=== PATIENT | female | born 1955 | race Caucasian/White ===

== ENCOUNTER → 2019-01-01 | Outpatient (CLI) | payer BC ==
--- NOTE | 2019-01-03 09:39 | MM ---
Reason for exam: screening (asymptomatic). Last mammogram was performed 2 years and 4 months ago. Physical Findings: A clinical breast exam by your physician is recommended on an annual basis and results should be correlated with mammographic findings. MG Screening Mammo w CAD Bilateral CC and MLO view(s) were taken. Prior study comparison: August 22, 2016, mammogram, performed at [facility]. March 31, 2011, mammogram, performed at [facility]. The breast tissue is heterogeneously dense. This may lower the sensitivity of mammography. No suspicious abnormality. No significant changes when compared with prior studies. ASSESSMENT: Negative, BI-RAD 1 RECOMMENDATION: Routine screening mammogram of both breasts in 1 year.
== END | disposition home or self-care (01) ==
LOC: RADMAMWWP 13:20
PROVIDERS: ATTEND Family Medicine
DX: Z12.31 Encounter for screening mammogram for malignant neoplasm of breast (principal)
CPT/HCPCS: 77067

== ENCOUNTER 2019-02-05 09:26 | Day surgery (SDC) | payer BC ==
[2019-02-03 15:00] VITALS: BMI 31.3
[~2019-02-05 09:26] MED LIST: LACTATED RINGERS 1,000 ML IV SCH; LIDOCAINE 1% 20 ML VIAL (10MG/ML) FOR IV START INTRADERMA PRN
[2019-02-05 09:56] VITALS: RESP 16; TEMP 97.9
[2019-02-05] MEDS ORDERED: ONDANSETRON 4 MG/2 ML VIAL IVP ONE (10:05)
[2019-02-05] MEDS ORDERED: PROPOFOL 10 MG/ML 20 ML VIAL IV ONE (10:07)
[2019-02-05] MEDS ORDERED: LIDOCAINE 1% INJ 10MG/ML (20 ML MDV) ONE (10:07)
--- NOTE | 2019-02-05 10:22 | P.PCN ---
Date of Procedure: 02/05/19 Procedure(s) Performed: BRIEF HISTORY: Patient is a 63-year-old pleasant white female scheduled for an elective colonoscopy as a part of screening for colorectal neoplasia PROCEDURE PERFORMED: Colonoscopy. PREOPERATIVE DIAGNOSIS: Screening for colon cancer. IV sedation per Anesthesia. PROCEDURE: After informed consent was obtained, the patient, was brought into the endoscopy unit. IV sedation was administered by Anesthesia under continuous monitoring. Digital rectal examination was normal. Initially the Olympus CF-160 flexible video colonoscope was then inserted in the rectum, gradually advanced into the cecum without any difficulty. Careful examination was performed as the scope was gradually being withdrawn. Ileocecal valve and the appendiceal orifice were visualized and appeared normal. Prep was excellent. Mucosa of the cecum, ascending colon, transverse colon, descending colon, sigmoid colon, and rectum appeared normal. Retroflexion was performed in the rectum and small internal hemorrhoids were seen. The patient tolerated the procedure well. IMPRESSION: Normal-appearing colon from rectum to cecum with no evidence of colorectal neoplasia. RECOMMENDATIONS: Findings of this examination were discussed with the patient as well as a family. She was advised to have a repeat screening colonoscopy in 10 years.
[2019-02-05 10:41] VITALS: BP 133/80; PULSE 57
== END 2019-02-05 11:07 | disposition home or self-care (01) ==
LOC: ORWHC2ENDO 09:26
PROVIDERS: ATTEND Internal Medicine Gastroenterology
DX: Z12.11 Encounter for screening for malignant neoplasm of colon (principal); K64.8 Other hemorrhoids; Z88.8 Allergy status to other drugs, medicaments and biological substances; I10 Essential (primary) hypertension; Z96.641 Presence of right artificial hip joint
CPT/HCPCS: J2405; J2001; J2704; G0121; 45378

== ENCOUNTER → 2021-07-05 | Outpatient (CLI) | payer BC, MEDICARE | END | disposition home or self-care (01) | LOC: LABWHC1 13:33 | PROVIDERS: ATTEND Otolaryngology | DX: J30.89 Other allergic rhinitis (principal) | CPT/HCPCS: 36415 ==

== ENCOUNTER → 2023-07-05 | Outpatient (CLI) | payer MEDICARE, BC ==
--- NOTE | 2023-07-07 16:55 | MM ---
Reason for Exam: Screening (asymptomatic). Last mammogram was performed 4 year(s) and 6 month(s) ago. Patient History: Menarche at age 12. First Full-Term at age 31. Late child-bearing (after 31). Hysterectomy at age 35. Risk Values: Bárbara 5 year model risk: 2.6%. NCI Lifetime model risk: 8.7%. Prior Study Comparison: 03/31/2011 Screening Mammogram, [facility]. 08/22/2016 Screening Mammogram, [facility]. 01/01/2019 Bilateral Screening Mammogram, [facility]. Tissue Density: There are scattered fibroglandular densities. Findings: Analyzed By CAD. There is no suspicious group of microcalcifications or new suspicious mass in either breast. Overall Assessment: Negative, BI-RAD 1 Management: Screening Mammogram of both breasts in 1 year. . Patient should continue monthly self-breast exams. A clinical breast exam by your physician is recommended on an annual basis. This exam should not preclude additional follow-up of suspicious palpable abnormalities. Note on Bárbara scores and lifetime risk: 1. A Bárbara score greater than 3% is considered moderate risk. If this is the case, consider specialist referral to assess eligibility for a risk reducing agent. 2. If overall lifetime risk for the development of breast cancer is 20% or higher, the patient may qualify for future screening with alternating mammogram and breast MRI. Electronically signed and approved by: Vaibhav Luna M.D. Radiologist
== END | disposition home or self-care (01) ==
LOC: RADMAMWWP 15:19
PROVIDERS: ATTEND Family Medicine
DX: Z12.31 Encounter for screening mammogram for malignant neoplasm of breast (principal)
CPT/HCPCS: 77063; 77067

== ENCOUNTER 2023-09-07 08:28 | Day surgery (SDC) | payer MEDICARE, BC ==
[2023-09-03 16:25] VITALS: BMI 32.1
[~2023-09-07 08:28] MED LIST changes: +ACETAMINOPHEN TAB 500 MG TAB PO PRN; +DEXAMETHASONE SOD PHOSPHATE 10 MG/ML 1 ML VIAL IV PRN; +DOCUSATE 100 MG CAP PO PRN; +FAMOTIDINE 20 MG/2 ML VIAL IVP PRN; +HYDROmorphone 0.5 MG/0.5 ML SYRINGE IVP PRN; +KETOROLAC 15 MG/ML 1 ML VIAL IVP PRN; -LACTATED RINGERS 1,000 ML IV SCH; -LIDOCAINE 1% 20 ML VIAL (10MG/ML) FOR IV START INTRADERMA PRN; +MIDAZOLAM 2 MG/2 ML VIAL IV PRN; +ONDANSETRON 4 MG/2 ML VIAL IVP PRN; +ROPIVACAINE/EPI/CLONIDINE/KET 50 ML SYRINGE MISCELLANE PRN; +TRANEXAMIC 1,000 MG/100ML-NACL 1,000 MG in SALINE 1 100ML.BAG IV PRN; +TRANEXAMIC 1,000 MG/100ML-NACL 1,000 MG in SALINE 1 100ML.BAG IVPB PRN; +oxyCODONE ER 10 MG TAB.ER.12H PO PRN
[2023-09-07] MEDS ORDERED: LACTATED RINGERS 1,000 ML IV ONE ×2 (09:05→11:24)
[2023-09-07] MEDS ORDERED: fentaNYL (PF) 50 MCG/ML 2 ML AMP IVP ONE (09:12)
[2023-09-07] MEDS ORDERED: MIDAZOLAM 2 MG/2 ML VIAL IVP ONE (09:12)
--- NOTE | 2023-09-07 09:31 | P.ANPRN ---
Procedure Note - Anesthesia - Nerve Block Performed Left Adductor Canal Single Time Out Performed: Yes Date of Procedure: 09/07/23 Procedure Start Time: :12 Procedure Stop Time: :17 Location of Patient: PreOp Indication: Acute Post-Operative Pain, Requested by Surgeon Sedation Type: Sedate with meaningful contact maintained Preparation: Sterile Prep Position: Supine Needle Types: Pajunk Needle Gauge: 21 Ultrasound used to visualize needle placement: Yes Ultrasound used to observe medication spread: Yes Injectate: 0.5% Ropivacaine (see comment for volume) (15 ml + 15 ml NS +4 mg Dexamethasone) Blood Aspirated: No Pain Paresthesia on Injection Noted: No Resistance on Injection: Normal Image Stored and Saved: Yes Events: Uneventful and Well Tolerated
--- NOTE | 2023-09-07 09:32 | P.ANPRN ---
Procedure Note - Anesthesia - Nerve Block Performed Left iPack Single Time Out Performed: Yes Date of Procedure: 09/07/23 Procedure Start Time: : Procedure Stop Time: Location of Patient: PreOp Indication: Acute Post-Operative Pain, Requested by Surgeon Sedation Type: Sedate with meaningful contact maintained Preparation: Sterile Prep Position: Right Lateral Needle Types: Pajunk Needle Gauge: 21 Ultrasound used to visualize needle placement: Yes Ultrasound used to observe medication spread: Yes Injectate: 0.5% Ropivacaine (see comment for volume) (15 ml + 15 ml NS + 4 mg Dexamethasone) Blood Aspirated: No Pain Paresthesia on Injection Noted: No Resistance on Injection: Normal Image Stored and Saved: Yes Events: Uneventful and Well Tolerated
[2023-09-07] MEDS ORDERED: NALOXONE 0.4 MG/ML 1 ML VIAL IV PRN (13:29)
[2023-09-07] MEDS ORDERED: hydrOXYzine pamoate 25 MG CAP PO PRN (13:29)
[2023-09-07] MEDS ORDERED: HYDROcodone/APAP 10-325MG 1 EACH TAB PO PRN (13:29)
[2023-09-07] MEDS ORDERED: MAGNESIUM HYDROXIDE 2,400 MG/30 ML CUP PO PRN (13:29)
[2023-09-07] MEDS ORDERED: ONDANSETRON 4 MG/2 ML VIAL IVP PRN (13:29)
[2023-09-07] MEDS ORDERED: bisacodyL 10 MG SUPP RECTAL PRN (13:29)
[2023-09-07] MEDS ORDERED: HYDROmorphone 0.5 MG/0.5 ML SYRINGE IVP PRN (13:29)
--- NOTE | 2023-09-07 13:41 | P.OP ---
Date of Procedure: 09/07/23 Preoperative Diagnosis: 1. Severe left valgus knee osteoarthritis 2. BMI 33.7 Postoperative Diagnosis: Same Procedure(s) Performed: 1. Left total knee arthroplasty 2. Computer assisted musculoskeletal navigation using CT/MRI images Implants: 1. [place] Triathlon PS Femur Size #4 2. [place] Triathlon [place] Tibial Base Size #4 with 12x50 stem 3. [place] Triathlon TS poly Size #11 4. [place] Triathlon all poly patella, Size #29 Anesthesia: SHARRONA, regional Surgeon: Michael Abdullahi Estimated Blood Loss (ml): 200 IV fluids (ml): 900 Pathology: none sent Condition: stable Disposition: PACU Indications for Procedure: I met with the patient preoperatively in the office setting and discussed treatment of their symptomatic knee arthritis. They failed a long course of nonsurgical treatment and elected to proceed with an elective total knee replacement. I discussed the potential risks and complications at length and gave them ample time to ask questions. Risks discussed included: risks from anesthesia, superficial site surgical infection, acute and/or chronic periprosthetic joint infection, delayed wound healing, drainage, wound necrosis, instability, stiffness, stiffness requiring manipulation and/or revision surgery, damage to local blood vessels or nerves, aseptic loosening of the implants, extensor mechanism issues including disruption, patellar maltracking, avascular necrosis etc., continued or worsened knee pain, generalized dissatisfaction with surgical outcome, need for revision surgery, an inability to regain preinjury level of function, DVT, PE, other medical complications, and possibly loss of life or limb. The patient voiced their understanding that while these are the most common complications other less common complications are possible. They provided both their verbal and written consent to go forward with surgery. Operative Findings: After registering the patient's knee with the AQUA PURE robotic system her initial valgus measured 3. Through both implant position manipulation and minimal lateral release of the IT band and extension her valgus was able to be corrected to 1.5 with trial implants. The patient had relatively poor bone quality and a large cyst in the tibia so I elected to use a short stem on the tibia. Given her valgus deformity I cut a box and used a posterior stabilized femoral implant and total stabilized polyethylene liner. Description of Procedure: The patient was identified in preoperative holding and the correct operative extremity was verified and marked with a marker. I reviewed the consent form with the patient at length. All of their questions were answered. The patient was given a block by anesthesia. They were then brought back to the operating room. They were transferred onto the operating room table where a general anesthetic, preoperative antibiotics, and tranexamic acid were administered by anesthesia. A tourniquet was applied to the proximal aspect of the operative extremity. The contralateral extremity was padded under the heel and secured to the operating room table with a nonsterile blue towel and tape. The ipsilateral arm was carefully draped across the patient's chest and secured with a pillow and foam. A post was applied over the lateral aspect of the ipsilateral thigh and a bolster was placed under the ipsilateral foot. I verified that the operative extremity was stable and the knee was flexed to 90. The operative extremity was then placed in a leg hilliard, nonsterile drapes were applied, and the extremity was prepped and draped sterilely in the standard sterile fashion. Prior to starting surgery timeout was performed identifying the correct patient, operative extremity, and procedure. The leg was then elevated, exsanguinated with an Esmarch bandage, and the tourniquet was inflated. An anterior midline incision was made sharply with a scalpel. Once I had dissected deep to the superficial fascial layer medial and lateral flaps were elevated. A medial parapatellar arthrotomy was created. Upon opening the knee joint there were diffuse arthritic changes in all 3 compartments. The anterior horn of the medial meniscus were sharply released and a medial release was performed around the posterior medial corner of the knee to facilitate retractor placement. The fat pad was excised with electrocautery. The patella was found to be severely arthritic and a provisional cut was made with a sagittal saw to facilitate mobilization of the extensor mechanism during the procedure. Remnants of the ACL and PCL were then excised from the notch. 4 mm pins were then placed within the incision in the medial distal femur and proximal tibia. Arrays were applied to the pins and I verified they were completely tightened. The knee was then registered with the AQUA PURE robot and manipulations in implant position were made to balance the knee and opitmize implant position. A limited release of the IT band was performed using electrocautery. Using the AQUA PURE robotic saw all cuts were made in accordance with our plan. After all bony fragments had been removed the cuts were verified with the planar probe. The tibia was then subluxed forward and sized. The knee was brought into flexion and a lamina pharmacy billing adjudicator was placed to allow removal of the meniscal remnants both medially and laterally as well as posterior osteophytes. Local anesthetic was then infiltrated around the joint capsule. Trial implants were then placed within the knee. Range of motion and collateral ligament tension was then evaluated. Adjustments in implant size and position were then made accordingly. Once the knee was felt to be appropriately balanced the Mino pins were removed. The patella was then recut, sized, and punched. A trial patellar button was then placed. With the trial components in place, the patella tracked midline. The femur was then drilled and the trial component removed. A cutting jig for the posterior stabilized implant was then pinned into place and the box cut was made with a saw. The trial tibial component was then appropriately rotated, pinned, and prepared for the keel. All trial components were then removed from the knee. The knee was thoroughly irrigated with pulsatile lavage. Cement was prepared via vacuum mixing in a bowl on the back table. I then hand pressurized cement into the femur and tibia and placed the implants beginning with the tibial base tray and poly liner, femoral component, and finally the patellar button. All extruded cement was removed including from the pin sites. Once the cement had hardened the knee was evaluated one final time with the final polyethylene liner in place. The knee had full extension and flexion and felt stable to varus and valgus stress throughout the arc of motion. The tourniquet was released and with the tourniquet down the patella tracked midline. All bleeders were controlled with electrocautery. The knee was then soaked for 3 minutes with a dilute Betadine soak. The knee was thoroughly irrigated using 3 L of sterile saline and pulsatile lavage. A deep drain was placed. The extensor mechanism was then reapproximated using pop off Vicryl sutures followed by a running barbed suture. The knee was then closed in layers with a 0 strata fix for the deep fascial layer, 2-0 strata fix for the superficial subcutaneous layer and Monocryl and Steri-Strips for the skin. A sterile dressing and drain sponge were applied. I verified that all instrument, sponge, and sharp counts were correct. The patient was then transferred off the operating room table, extubated, and brought to recovery having tolerated the procedure well. PLAN: The patient can weight-bear as tolerated on the operative extremity. DVT prophylaxis with aspirin 81 mg twice a day based on preoperative risk stratification. Follow-up in the office in 2 weeks for wound check and x-rays of the knee including an AP and lateral.
--- NOTE | 2023-09-07 14:19 | XR ---
EXAMINATION TYPE: XR knee limited LT DATE OF EXAM: 09/07/2023 COMPARISON: NONE TECHNIQUE: Two views submitted HISTORY: Post op FINDINGS: There is a prosthetic knee in near anatomic alignment. There is soft tissue edema and soft tissue e mphysema. Surgical drain noted. Soft tissue calcifications noted. IMPRESSION: 1. Postoperative change.
[2023-09-07] MEDS: LACTATED RINGERS 1,000 ML IV SCH (16:29)
[2023-09-07] MEDS: SODIUM CHLORIDE 0.9% 1,000 ML IV SCH (16:29)
[2023-09-07] MEDS ORDERED: SENNOSIDES-DOCUSATE SODIUM 1 EACH TAB PO SCH (21:00)
[2023-09-07] MEDS: ASPIRIN 81 MG PO SCH (21:02)
[2023-09-07] MEDS: HYDROcodone/APAP 5-325MG 1 EACH TAB PO PRN (23:25)
[2023-09-08] MEDS: SODIUM CHLORIDE 0.9% 1,000 ML IV SCH ×2 (01:24→01:44)
[2023-09-08] MEDS: LACTATED RINGERS 1,000 ML IV SCH (06:50)
--- NOTE | 2023-09-08 07:59 | P.PN ---
Subjective Progress Note Date: 09/08/23 Patient is doing well this morning. She has no complaints. Her pain is controlled. She has been up to the bathroom several times with assistance and a walker. Objective - Vital Signs Vital signs: Vital Signs Temp 98 F 09/08/23 01:10 Pulse 75 09/08/23 01:10 Resp 18 09/08/23 01:10 BP 111/65 09/08/23 01:10 Pulse Ox 92 L 09/08/23 01:10 FiO2 Intake & Output 09/07/23 09/08/23 09/08/23 18:59 06:59 18:59 Intake Total 1700 1250 Output Total 300 Balance 1400 1250 Weight 97.6 kg Intake: IV 1450 Intake, IV Titration 50 1250 Amount Sodium Chloride 0.9% 1, 1200 000 ml @ 100 mls/hr IV . Q10H VARGHESE Rx#:[id number] ceFAZolin 2 gm In Sodium 50 50 Chloride 0.9% 50 ml @ 100 mls/hr IVPB Q8H VARGHESE Rx#: [id number] Oral 200 Output: Estimated Blood Loss 300 Other: # Voids 1 - Exam The patient is sitting up comfortably in a chair. She is alert and able to answer questions. A focused examination of the left lower extremity was conducted. On inspection there is a clean surgical dressing in place with no drainage or saturation. Her Hemovac was removed. Motor and sensory function are intact throughout the left leg. Assessment and Plan Assessment: Postoperative day #1 status post left total knee replacement, doing well Plan: 1. Weight-bear as tolerated left lower extremity 2. DVT prophylaxis with aspirin 81 mg twice a day 4 weeks 3. Leave surgical dressing in place 4. Physical therapy 5. Dispo: We'll plan on discharging the patient home later this morning when she passes physical therapy. Due to the hospital pharmacy being closed her prescriptions were all sent electronically through our office EMR to [facility] in [place].
--- NOTE | 2023-09-08 08:00 | P.DS ---
Providers Date of admission: 09/07/2023 Attending physician: Michael Abdullahi Consults: 09/07/23 13:29 Consult Physician Routine Consulting Provider: Celeste Manley Consult Reason/Comments: post op medical management Do you want consulting provider notified?: Yes Primary care physician: Lali Chau [facility] Course: Patient is very pleasant is a healthy 68-year-old female who is admitted under my care yesterday. She underwent an uncomplicated total knee replacement and following surgery was transferred to the surgical floor. She received 2 doses of postoperative antibiotics. She was transitioned from IV to oral pain medication. Her Hemovac drain was pulled on postoperative day #1. She worked with physical therapy and did well. She was ultimately cleared for discharge home. Plan - Discharge Summary Discharge Rx Participant: Yes New Discharge Prescriptions: No Action Losartan Potassium [Cozaar] 100 mg PO DAILY Celecoxib [CeleBREX] 200 mg PO DAILY hydroCHLOROthiazide [Hydrodiuril] 50 mg PO DAILY Discharge Medication List Losartan Potassium [Cozaar] 100 mg PO DAILY 02/03/19 [History] Celecoxib [CeleBREX] 200 mg PO DAILY 09/03/23 [History] hydroCHLOROthiazide [Hydrodiuril] 50 mg PO DAILY 09/03/23 [History] Follow up Appointment(s)/Referral(s): Michael Abdullahi MD [Medical Doctor] - 2 Weeks Activity/Diet/Wound Care/Special Instructions: 1. Weight-bear as tolerated on your operative extremity unless instructed otherwise. Use a walker or other assistive device to ambulate. 2. Leave surgical dressing in place. If your dressing becomes saturated with blood, there is drainage, or the dressing becomes loose please contact the office. 3. It is okay to shower with your surgical dressing, but do not submerge in water (no hot tubs, bath's, swimming etc.) 4. Make sure to take her blood clot prevention medication as prescribed (aspirin, Eliquis, Xarelto, and Plavix are commonly prescribed medications for blood clot prevention) 5. While taking Beverly or Percocet for pain make sure you're taking a stool softener (Colace) and drink lots of water. 6. Keep all follow-up appointments as scheduled. You will usually be seen in 1-2 weeks following surgery. 7. Please contact the office with any questions or concerns [phone] Discharge Disposition: HOME SELF-CARE
[2023-09-08] MEDS: HYDROcodone/APAP 5-325MG 1 EACH TAB PO PRN ×2 (08:27→13:15)
[2023-09-08] MEDS: ASPIRIN 81 MG PO SCH (08:28)
[2023-09-08 08:36] VITALS: BP 117/70; PULSE 68; RESP 16; TEMP 97.9
[2023-09-08 09:07] LABS: Basophils % (A) 0 %; Eosinophils % (A) 0 %; HCT 30.7 % (34.0-46.0); HGB 9.7 gm/dL (11.4-16.0); Lymphocytes # (A) 1.8 k/uL (1.0-4.8); Lymphocytes % (A) 11 %; MCHC 31.5 g/dL (31.0-37.0); MCV 85.8 fL (80.0-100.0); Monocytes # (A) 0.6 k/uL (0-1.0); Monocytes % (A) 4 %; Neutrophils # (A) 13.9 k/uL (1.3-7.7); Neutrophils % (A) 85 %; Platelet Count 271 k/uL (150-450); RBC 3.58 m/uL (3.80-5.40); RDW 13.6 % (11.5-15.5); WBC 16.4 k/uL (3.8-10.6)
--- NOTE | 2023-09-08 11:08 | P.CONS ---
History of Present Illness - History of Present Illness This is a pleasant 68 years old female with past medical history of hypertension and osteoarthritis She was admitted for severe osteoarthritis of the left knee, she is status post left total knee arthroplasty. Medical consult was requested for routine medical management Patient is lying in bed comfortable, she denies any other symptom. Her pain at the surgery site controlled. She denies chest pain or dyspnea. No change in urine or bowel habits. No fever. Vitals are stable and patient is afebrile. Labs showing WBC is elevated 16.4 with hemoglobin 9.7. Review of Systems Review of systems CONSTITUTIONAL: No fever, no malaise, no fatigue. HEENT: No recent visual problems or hearing problems. Denied any sore throat. CARDIOVASCULAR: No orthopnea, PND, no palpitations, no syncope. PULMONARY: No shortness of breath, no cough, no hemoptysis. GASTROINTESTINAL: No diarrhea, no nausea, no vomiting, no abdominal pain. Normoactive bowel sounds. NEUROLOGICAL: No headaches, no weakness, no numbness. HEMATOLOGICAL: Denies any bleeding or petechiae. GENITOURINARY: Denies any burning micturition, frequency, or urgency. MUSCULOSKELETAL/RHEUMATOLOGICAL: Denies any joint pain, swelling, or any muscle pain. ENDOCRINE: Denies any polyuria or polydipsia. Past Medical History Past Medical History: Hypertension, Osteoarthritis (OA) Additional Past Medical History / Comment(s): heart murmur ("functional") History of Any Multi-Drug Resistant Organisms: None Reported Past Surgical History: Cholecystectomy, Hysterectomy, Joint Replacement Additional Past Surgical History / Comment(s): rt total hip replacement, throat surgery I & D PUS POCKET 2013, COLONOSCOPY, Past Anesthesia/Blood Transfusion Reactions: Previous Problems w/ Anesthesia, Motion Sickness, Postoperative Nausea & Vomiting (PONV) Additional Past Anesthesia/Blood Transfusion Reaction / Comm: "go under very deeply" Past Psychological History: No Psychological Hx Reported Smoking Status: Never smoker Past Alcohol Use History: Occasional Past Drug Use History: None Reported - Past Family History Mother Family Medical History: No Reported History Medications and Allergies Home Medications Medication Instructions Recorded Confirmed Type Losartan Potassium [Cozaar] 100 mg PO DAILY 02/03/19 09/03/23 History Celecoxib [CeleBREX] 200 mg PO DAILY 09/03/23 09/03/23 History hydroCHLOROthiazide [Hydrodiuril] 50 mg PO DAILY 09/03/23 09/03/23 History Allergies Allergy/AdvReac Type Severity Reaction Status Date / Time FRANCINE Inhibitors Allergy Cough Verified 09/03/23 15:59 Physical Exam Vitals: Vital Signs Temp Pulse Pulse Resp BP Pulse Ox 09/08/23 08:23 96 09/08/23 07:32 97.9 F 68 16 117/70 94 L 09/08/23 01:10 98 F 75 18 111/65 92 L 09/07/23 20:00 97.7 F 79 16 127/78 96 09/07/23 17:26 97.4 F L 79 10 L 131/75 96 09/07/23 17:01 72 134/76 96 09/07/23 16:46 81 134/78 99 09/07/23 16:31 75 126/73 96 09/07/23 16:16 75 130/75 93 L 09/07/23 16:01 68 130/76 96 09/07/23 15:46 84 131/75 98 09/07/23 15:31 67 136/74 98 09/07/23 15:16 63 133/73 95 09/07/23 15:02 73 131/63 97 09/07/23 14:58 97.5 F L 69 20 143/71 98 09/07/23 14:34 74 16 131/56 96 09/07/23 14:19 67 16 114/53 95 09/07/23 14:03 66 16 123/55 95 09/07/23 13:48 64 16 113/46 100 09/07/23 13:33 68 16 129/52 98 09/07/23 13:18 97.3 F L 84 12 136/59 94 L Intake and Output 09/07/23 09/08/23 09/08/23 22:59 06:59 14:59 Intake Total 250 1250 Balance 250 1250 Intake: Intake, IV Titration 50 1250 Amount Sodium Chloride 0.9% 1, 1200 000 ml @ 100 mls/hr IV . Q10H VARGHESE Rx#:[id number] ceFAZolin 2 gm In Sodium 50 50 Chloride 0.9% 50 ml @ 100 mls/hr IVPB Q8H VARGHESE Rx#: [id number] Oral 200 Other: # Voids 1 1 Weight 97.6 kg GENERAL: The patient is alert and oriented x3, not in any acute distress. Well developed, well nourished. HEENT: Pupils are round and equally reacting to light. EOMI. No scleral icterus. No conjunctival pallor. Normocephalic, atraumatic. No pharyngeal erythema. No thyromegaly. CARDIOVASCULAR: S1 and S2 present. No murmurs, rubs, or gallops. PULMONARY: Chest is clear to auscultation, no wheezing , no crackles. ABDOMEN: Soft, nontender, nondistended, normoactive bowel sounds. No palpable organomegaly. MUSCULOSKELETAL: No joint swelling or deformity. EXTREMITIES: No cyanosis, clubbing, or pedal edema. Left knee surgical wound closed, dressing in a Place, sulfa exam is deferred to surgery team NEUROLOGICAL: Gross neurological examination did not reveal any focal deficits. SKIN: No rashes. no petechiae. Results CBC & Chem 7: 09/08/23 06:52 Labs: Abnormal Lab Results - Last 24 Hours (Table) 09/08/23 Range/Units 06:52 WBC 16.4 H (3.8-10.6) k/uL RBC 3.58 L (3.80-5.40) m/uL Hgb 9.7 L (11.4-16.0) gm/dL Hct 30.7 L (34.0-46.0) % Neutrophils # 13.9 H (1.3-7.7) k/uL Assessment and Plan Assessment: Severe osteoarthritis status post left total knee arthroplasty. Today postop day #1 Leukocytosis most likely reactive Postoperative anemia, expected Hypertension Obesity with BMI of 33.7 Plan: Continue monitoring WBC Monitor hemoglobin Upon discharge recommend patient to resume her losartan 100 mg daily but hold hydrochlorothiazide 50 mg daily until she follows up with her blood pressure as an outpatient with her PCP within 3-4 days, patient was instructed with this plan and she is agreeable Pain management and DVT prophylaxis as per surgery primary team Orthopedic surgery primary team on the case Patient is medically stable. We recommend patient follow up with PCP Dr. Escalera in one week after discharge, patient was informed with the same Thank you for your consult
== END 2023-09-08 17:00 | disposition home health service (06) ==
LOC: OR 08:28 → 4SSUR 13:07 → OR 09-08 17:00
PROVIDERS: ATTEND Orthopaedic Surgery
DX: M17.12 Unilateral primary osteoarthritis, left knee (principal); G89.18 Other acute postprocedural pain; I10 Essential (primary) hypertension; H91.90 Unspecified hearing loss, unspecified ear; Z79.1 Long term (current) use of non-steroidal anti-inflammatories (NSAID); Z79.899 Other long term (current) drug therapy; Z96.641 Presence of right artificial hip joint
CPT/HCPCS: 0055T; 27447; 64448; 64999; S2900; 85025; 94760

== ENCOUNTER → 2023-11-06 | Outpatient (CLI) | payer MEDICARE ==
[2023-11-06 12:47] LABS: INR 0.8 (<1.2); Partial Thromboplastin Time 25.2 sec (22.0-30.0); Prothrombin Time 9.6 sec (10.0-12.5)
[2023-11-06 15:32] LABS: HCT 38.6 % (37.2-46.3); MCH 26.4 pg (27.0-32.0); MCHC 31.1 g/dL (32.0-37.0); Mean Platelet Volume 10.3 FL (9.5-12.2); NRBC Per 100 WBC 0 X 10*3/uL (0.00-0.01); Platelet Count 381 X 10*3/uL (140-440); RBC 4.54 X 10*6/uL (4.10-5.20); RDW 14.5 % (11.5-14.5); WBC 7.11 X 10*3/uL (4.50-10.00)
[2023-11-06 15:38] LABS: ALT 10 U/L (8-44); AST 14 U/L (13-35); Albumin 4.3 g/dL (3.8-4.9); Albumin/Globulin Ratio 1.79 Ratio (1.60-3.17); Alkaline Phosphatase 91 U/L (41-126); BUN/Creat Ratio 23.75 Ratio (12.00-20.00); Calcium 10.1 mg/dL (8.7-10.3); Carbon Dioxide 29.2 mmol/L (21.6-31.8); Chloride 102 mmol/L (96-109); Globulin 2.4 g/dL (1.6-3.3); Glucose 94 mg/dL (70-110); Sodium 143 mmol/L (135-145); Total Bilirubin 0.2 mg/dL (0.3-1.2); Total Protein 6.7 g/dL (6.2-8.2)
== END | disposition home or self-care (01) ==
LOC: LABPAT 11:25
PROVIDERS: ATTEND Orthopaedic Surgery
DX: Z01.812 Encounter for preprocedural laboratory examination (principal); M17.11 Unilateral primary osteoarthritis, right knee; Z22.322 Carrier or suspected carrier of Methicillin resistant Staphylococcus aureus
CPT/HCPCS: 36415; 80053; 83036; 85027; 85610; 85730; 87070

== ENCOUNTER → 2023-11-06 | Outpatient (CLI) | payer MEDICARE ==
--- NOTE | 2023-11-14 08:28 | CT ---
EXAMINATION TYPE: CT right knee - [facility] Protocol CT DLP: 1025 mGycm, Automated exposure control for dose reduction was used. DATE OF EXAM: 11/06/2023 1:06 PM INDICATION: Patient age:Female; 68 years old; Reason for study: [facility] Protocol for hip/knee replacement, M25.562 PAIN IN RIGHT KNEE; [facility]. COMPARISON: CT left knee [facility] protocol 08/13/2023 TECHNIQUE: Thin section axial CT imaging of the right hip, right knee, right ankle was performed per Mino protoc ol, without the administration of IV contrast. FINDINGS: Osseous mineralization appears diminished. No evidence of osseous destructive process. Tiny sclerotic focus in the left pubic bone near the symphysis, 8 mm sclerotic focus in the posterior left acetabul um, 2 mm focus in the left femoral head. Hip: Right hip arthroplasty in place, likely bipolar type. Some limitation by artifact without acute abnormality of the surrounding bone. There are some cystic/degenerative changes in the right pelvis a bout the acetabular cup. Mild to moderate osteoarthropathy of the left hip. Mild degenerative change of the SI joints. No acute or concerning soft tissue abnormality. Knee: Severe tricompartmental osteoarthropathy with joint space narrowing and marginal osteophytosis. There are a few millimeters of medial shift of the distal femur on the proximal tibia. Prominent sub chondral cysts are seen in the proximal tibia, at and posterior to the tibial spines, posterior media l and lateral compartments, the largest posterior to the iliac spines measuring 11 mm. No acute fract ure or dislocation. Moderate to severe degenerative change of the patellofemoral joint, with joint sp akash narrowing and hypertrophic changes at the lateral facet abutting the patella which shows some chr onic mild to moderate lateral subluxation. Prominent osteophyte noted extending from the superior pos terior patella about 18 mm in length. Subchondral cyst formation in the posterior patella the largest 7.5 mm. Soft tissues demonstrate a small to moderate size knee joint effusion. Ankle: Right ankle shows mild to moderate degenerative change of the ankle joint with mild smooth fla ttening along the talar dome. No acute fracture or dislocation. Degenerative changes of the midfoot a nd hindfoot, greatest at the talonavicular joint which is moderate to severe with joint space narrowi ng, osteophytes, subchondral cysts. Suuum-jh-xsebrgdf sized plantar and dorsal calcaneal spurs. Soft tissues show possible mild ankle joint effusion. Mild soft tissue edema. Partially seen left ankle shows mild degenerative change of the ankle joint and a couple of well-constance icated ovoid lucent structures in the medial subcortical distal tibia with a benign appearance; these appear stable versus 08/13/2023. IMPRESSION: 1. [facility] protocol for joint replacement. 2. Right hip arthroplasty in place. 3. Severe right knee tricompartmental osteoarthropathy with a few millimeters of medial shift of the distal femur on the proximal tibia. 4. Small to moderate size right knee joint effusion. 5. Right ankle mild to moderate degenerative change of the ankle joint. Moderate to severe degenerat macey changes of the talonavicular joint. Yvxao-my-heqfohzw sized plantar and dorsal calcaneal spurs. 6. A few small stable sclerotic lesions in the LEFT pelvis/hip; consider bone islands or less likely metastatic disease. Correlate with history and possible bone scan. 7. Unchanged lucent lesions in the distal LEFT tibia, with a benign appearance.
== END | disposition home or self-care (01) ==
LOC: RADCTMAIN 11:55 → MERGE 13:15
PROVIDERS: ATTEND Orthopaedic Surgery
DX: M17.11 Unilateral primary osteoarthritis, right knee (principal); M25.462 Effusion, left knee; Z96.641 Presence of right artificial hip joint

== ENCOUNTER 2023-11-21 13:35 | Day surgery (SDC) | payer MEDICARE ==
[~2023-11-21 13:35] MED LIST changes: +DEXAMETHASONE SOD PHOSPHATE 4 MG/ML 1 ML VIAL IV ONE; -MIDAZOLAM 2 MG/2 ML VIAL IV PRN; +ONDANSETRON 4 MG/2 ML VIAL IVP ONE
[2023-11-21] MEDS ORDERED: HYDROmorphone 0.5 MG/0.5 ML SYRINGE IVP PRN ×3 (13:52)
[2023-11-21] MEDS ORDERED: NALOXONE 0.4 MG/ML 1 ML VIAL IV PRN (13:52)
[2023-11-21] MEDS ORDERED: ONDANSETRON 4 MG/2 ML VIAL IVP PRN (13:52)
[2023-11-21] MEDS ORDERED: NA PHOS,M-B/NA PHOS,DI-BA 133 ML ENEMA RECTAL PRN (13:52)
[2023-11-21] MEDS ORDERED: MAGNESIUM HYDROXIDE 2,400 MG/30 ML CUP PO PRN (13:52)
[2023-11-21] MEDS ORDERED: bisacodyL 10 MG SUPP RECTAL PRN (13:52)
[2023-11-21] MEDS ORDERED: HYDROcodone/APAP 7.5-325MG 1 EACH TAB PO PRN (13:57)
[2023-11-21] MEDS: LACTATED RINGERS 1,000 ML IV SCH (14:15)
[2023-11-21] MEDS ORDERED: MIDAZOLAM 2 MG/2 ML VIAL IVP ONE (16:29)
[2023-11-21] MEDS ORDERED: ROPIVACAINE 5 MG/ML 30 ML VIAL ONE (17:01)
[2023-11-21] MEDS ORDERED: MIDAZOLAM 2 MG/2 ML VIAL ONE (17:01)
[2023-11-21] MEDS ORDERED: DEXAMETHASONE SOD PHOSPHATE 4 MG/ML 1 ML VIAL ONE (17:01)
[2023-11-21] MEDS ORDERED: TRANEXAMIC 1,000 MG/100ML-NACL PREMIX BAG ONE (17:01)
[2023-11-21] MEDS ORDERED: PROPOFOL 10 MG/ML 20 ML VIAL IV ONE (17:01)
--- NOTE | 2023-11-21 20:00 | P.OP ---
Date of Procedure: 11/21/23 Preoperative Diagnosis: Severe right valgus knee arthritis Postoperative Diagnosis: Same Procedure(s) Performed: 1. Right total knee arthroplasty 2. Computer assisted musculoskeletal navigation using CT/MRI images Implants: 1. [place] [employer] CR Femur Size #4 2. [place] [employer] [place] Tibial Base Size #4 with 12x50 stem 3. [place] [employer] CS poly Size #11 4. [place] [employer] all poly patella, Size #29 Anesthesia: regional, spinal Surgeon: Michael Abdullahi Estimated Blood Loss (ml): 150 IV fluids (ml): 800 Pathology: none sent Condition: stable Disposition: PACU Indications for Procedure: I met with the patient preoperatively in the office setting and discussed treatment of their symptomatic knee arthritis. They failed a long course of nonsurgical treatment and elected to proceed with an elective total knee replacement. I discussed the potential risks and complications at length and gave them ample time to ask questions. Risks discussed included: risks from anesthesia, superficial site surgical infection, acute and/or chronic periprosthetic joint infection, delayed wound healing, drainage, wound necrosis, instability, stiffness, stiffness requiring manipulation and/or revision surgery, damage to local blood vessels or nerves, aseptic loosening of the implants, extensor mechanism issues including disruption, patellar maltracking, avascular necrosis etc., continued or worsened knee pain, generalized dissatisfaction with surgical outcome, need for revision surgery, an inability to regain preinjury level of function, DVT, PE, other medical complications, and possibly loss of life or limb. The patient voiced their understanding that while these are the most common complications other less common complications are possible. They provided both their verbal and written consent to go forward with surgery. Operative Findings: After registering the patient's knee with a Click4Ride robotic system her preoperative deformity was between 2.5 of valgus. I was able to balance the knee with a 1- degree of valgus on the tibial cut and 1.5 degrees of valgus on the distal femoral cut. With the trial implants in place the knee registered 2 of valgus. After placement of the implants including the patellar button and with the tourniquet down there was lateral subluxation of the patella so a limited lateral release was performed. Following this the patella tracked midline. Description of Procedure: The patient was identified in preoperative holding and the correct operative extremity was verified and marked with a marker. I reviewed the consent form with the patient at length. All of their questions were answered. The patient was given a block by anesthesia. They were then brought back to the operating room. They were transferred onto the operating room table where a general anesthetic, preoperative antibiotics, and tranexamic acid were administered by anesthesia. A tourniquet was applied to the proximal aspect of the operative extremity. The contralateral extremity was padded under the heel and secured to the operating room table with a nonsterile blue towel and tape. The ipsilateral arm was carefully draped across the patient's chest and secured with a pillow and foam. A post was applied over the lateral aspect of the ipsilateral thigh and a bolster was placed under the ipsilateral foot. I verified that the op erative extremity was stable and the knee was flexed to 90. The operative extremity was then placed in a leg hilliard, nonsterile drapes were applied, and the extremity was prepped and draped sterilely in the standard sterile fashion. Prior to starting surgery timeout was performed identifying the correct patient, operative extremity, and procedure. The leg was then elevated, exsanguinated with an Esmarch bandage, and the tourniquet was inflated. An anterior midline incision was made sharply with a scalpel. Once I had dissected deep to the superficial fascial layer medial and lateral flaps were elevated. A medial parapatellar arthrotomy was created. Upon opening the knee joint there were diffuse arthritic changes in all 3 compartments. The anterior horn of the medial meniscus were sharply released and a medial release was performed around the posterior medial corner of the knee to facilitate retractor placement. The fat pad was excised with electrocautery. The patella was found to be severely arthritic and a provisional cut was made with a sagittal saw to facilitate mobilization of the extensor mechanism during the procedure. Remnants of the ACL and PCL were then excised from the notch. 4 mm pins were then placed within the incision in the medial distal femur and proximal tibia. Arrays were applied to the pins and I verified they were completely tightened. The knee was then registered with the Click4Ride robot and manipulations in implant position were made to balance the knee and opitmize implant position. Using the Click4Ride robotic saw all cuts were made in accordance with our plan. After all bony fragments had been removed the cuts were verified with the planar probe. The tibia was then subluxed forward and sized. The knee was brought into flexion and a lamina blocker automatic was placed to allow removal of the meniscal remnants both medially and laterally as well as posterior osteophytes. Local anesthetic was then infiltrated around the joint capsule. Trial implants were then placed within the knee. Range of motion and collateral ligament tension was then evaluated. Adjustments in implant size and position were then made accordingly. Once the knee was felt to be appropriately balanced the Mino pins were removed. The patella was then recut, sized, and punched. A trial patellar button was then placed. With the trial components in place, the patella tracked midline. The femur was then drilled and the trial component removed. The trial tibial component was then appropriately rotated, pinned, and prepared for the keel. All trial components were then removed from the knee. The knee was thoroughly irrigated with pulsatile lavage. Cement was prepared via vacuum mixing in a bowl on the back table. I then hand pressurized cement into the femur and tibia and placed the implants beginning with the tibial base tray and poly liner, femoral component, and finally the patellar button. All extruded cement was removed including from the pin sites. Once the cement had hardened the knee was evaluated one final time with the final polyethylene liner in place. The knee had full extension and flexion and felt stable to varus and valgus stress thr oughout the arc of motion. The tourniquet was released and with the tourniquet down the patella had slight lateral tilt so a limited outside in lateral release was performed. Following this the patella tracked midline. All bleeders were controlled with electrocautery. The knee was then soaked for 3 minutes with a dilute Betadine soak. The knee was thoroughly irrigated using 3 L of sterile saline and pulsatile lavage. A deep drain was placed. The extensor mechanism was then reapproximated using pop off Vicryl sutures followed by a running barbed suture. The knee was then closed in layers with a 0 strata fix for the deep fascial layer, 2-0 strata fix for the superficial subcutaneous layer and Monocryl and Steri-Strips for the skin. A sterile dressing and drain sponge were applied. I verified that all instrument, sponge, and sharp counts were correct. The patient was then transferred off the operating room table, extubated, and brought to recovery having tolerated the procedure well. PLAN: The patient can weight-bear as tolerated on the operative extremity. DVT prophylaxis with aspirin 81 mg twice a day based on preoperative risk stratification. Follow-up in the office in 2 weeks for wound check and x-rays of the knee including an AP and lateral.
--- NOTE | 2023-11-21 20:34 | XR ---
EXAMINATION TYPE: XR knee limited RT DATE OF EXAM: 11/21/2023 8:09 PM CLINICAL INDICATION:Female, 68 years old with history of Evaluation for Postop abnormality and alignm ent; [facility] COMPARISON: None. TECHNIQUE: XR knee limited RT; examined in Frontal, lateral and oblique projections. FINDINGS: Status post total knee arthroplasty changes with hardware in appropriate alignment and in tact. No evidence of fracture. IMPRESSION: Status post total knee arthroplasty changes with hardware intact and appropriate alignment. No fractu res identified.
[2023-11-21] MEDS: ASPIRIN 81 MG PO SCH (20:51)
[2023-11-21] MEDS ORDERED: SENNOSIDES-DOCUSATE SODIUM 1 EACH TAB PO SCH (21:00)
[2023-11-21] MEDS: SODIUM CHLORIDE 0.9% 1,000 ML IV SCH (22:33)
[2023-11-22] MEDS: HYDROcodone/APAP 7.5-325MG 1 EACH TAB PO PRN ×2 (00:03→06:44)
[2023-11-22] MEDS: SODIUM CHLORIDE 0.9% 1,000 ML IV SCH (03:57)
[2023-11-22] MEDS: LACTATED RINGERS 1,000 ML IV SCH (04:55)
[2023-11-22] MEDS ORDERED: ALBUTEROL NEBULIZED 2.5 MG/3 ML INHALATION PRN (06:09)
[2023-11-22] MEDS: ASPIRIN 81 MG PO SCH (07:55)
[2023-11-22 08:20] VITALS: BP 106/61; PULSE 57; RESP 19; TEMP 97.6
--- NOTE | 2023-11-22 08:35 | P.DS ---
Providers Date of admission: Sunday11/21/2023 Attending physician: Michael Abdullahi Consults: 11/21/23 13:52 Consult Physician Routine Consulting Provider: Marsha Bang Consult Reason/Comments: medical management Do you want consulting provider notified?: Yes Primary care physician: Lali Chau [facility] Course: The patient was admitted under my care and underwent an uncomplicated total knee replacement. Following surgery, she was transferred to the orthopaedics floor. She had 2 doses of post-operative antibiotics. She was started on aspirin for DVT prophylaxis. Her drain was pulled on POD1. She did well with PT and was discharged home. Plan - Discharge Summary Discharge Rx Participant: No New Discharge Prescriptions: New Aspirin [Adult Low Dose Aspirin EC] 81 mg PO BID 30 Days #60 tab Omeprazole [PriLOSEC] 20 mg PO DAILY #30 cap Sennosides [Senokot] 2 tab PO DAILY PRN #60 tablet PRN Reason: Constipation HYDROcodone/APAP 7.5-325MG [[place] 7.5-325] 1 - 2 tab PO Q6H PRN #32 tab PRN Reason: Pain No Action Losartan Potassium [Cozaar] 50 mg PO DAILY Celecoxib [CeleBREX] 200 mg PO DAILY hydroCHLOROthiazide [Hydrodiuril] 50 mg PO DAILY Albuterol Inhaler [Ventolin Hfa Inhaler] 1 - 2 puff INHALATION Q6H PRN PRN Reason: Shortness Of Breath Discharge Medication List Losartan Potassium [Cozaar] 50 mg PO DAILY 02/03/19 [History] Celecoxib [CeleBREX] 200 mg PO DAILY 09/03/23 [History] Albuterol Inhaler [Ventolin Hfa Inhaler] 1 - 2 puff INHALATION Q6H PRN 11/20/23 [History] hydroCHLOROthiazide [Hydrodiuril] 50 mg PO DAILY 11/20/23 [History] Aspirin [Adult Low Dose Aspirin EC] 81 mg PO BID 30 Days #60 tab 11/21/23 [Rx] HYDROcodone/APAP 7.5-325MG [[place] 7.5-325] 1 - 2 tab PO Q6H PRN #32 tab 11/21/23 [Rx] Omeprazole [PriLOSEC] 20 mg PO DAILY #30 cap 11/21/23 [Rx] Sennosides [Senokot] 2 tab PO DAILY PRN #60 tablet 11/21/23 [Rx] Follow up Appointment(s)/Referral(s): Michael Abdullahi MD [Medical Doctor] - 2 Weeks Activity/Diet/Wound Care/Special Instructions: 1. Weight-bear as tolerated on your operative extremity unless instructed otherwise. Use a walker or other assistive device to ambulate. 2. Leave surgical dressing in place. If your dressing becomes saturated with blood, there is drainage, or the dressing becomes loose please contact the office. 3. It is okay to shower with your surgical dressing, but do not submerge in water (no hot tubs, bath's, swimming etc.) 4. Make sure to take her blood clot prevention medication as prescribed (aspirin, Eliquis, Xarelto, and Plavix are commonly prescribed medications for blood clot prevention) 5. While taking [place] or Percocet for pain make sure you're taking a stool softener (Colace) and drink lots of water. 6. Keep all follow-up appointments as scheduled. You will usually be seen in 1-2 weeks following surgery. 7. Please contact the office with any questions or concerns [phone] Discharge Disposition: HOME SELF-CARE
--- NOTE | 2023-11-22 10:44 | P.ANPRN ---
Procedure Note - Anesthesia - Nerve Block Performed Right Adductor Canal Single Time Out Performed: Yes Date of Procedure: 11/21/23 Procedure Start Time: : Procedure Stop Time: Location of Patient: PreOp Indication: Acute Post-Operative Pain, Requested by Surgeon Sedation Type: Sedate with meaningful contact maintained Preparation: Sterile Prep Position: Supine Needle Types: Pajunk Needle Gauge: 21 Ultrasound used to visualize needle placement: Yes Ultrasound used to observe medication spread: Yes Blood Aspirated: No Pain Paresthesia on Injection Noted: No Resistance on Injection: Normal Image Stored and Saved: Yes Events: Uneventful and Well Tolerated (Ropivacaine 0.5% 20 cc plus dexamethasone 4 mg)
--- NOTE | 2023-11-22 10:45 | P.ANPRN ---
Procedure Note - Anesthesia - Nerve Block Performed Right [place] Single Time Out Performed: Yes Date of Procedure: 11/21/23 Procedure Start Time: 16: Procedure Stop Time: 16:29 Location of Patient: PreOp Indication: Acute Post-Operative Pain, Requested by Surgeon Sedation Type: Sedate with meaningful contact maintained Preparation: Sterile Prep Position: Supine Needle Types: Pajunk Needle Gauge: 21 Ultrasound used to visualize needle placement: Yes Ultrasound used to observe medication spread: Yes Blood Aspirated: No Pain Paresthesia on Injection Noted: No Resistance on Injection: Normal Image Stored and Saved: Yes Events: Uneventful and Well Tolerated (Ropivacaine 0.5% 20 cc plus dexamethasone 4 mg)
[2023-11-22 11:09] LABS: Basophils # (A) 0.02 X 10*3/uL (0.00-0.10); Basophils % (A) 0.1 %; Eosinophils # (A) 0.02 X 10*3/uL (0.04-0.35); Eosinophils % (A) 0.1 %; HCT 33.7 % (37.2-46.3); HGB 10.5 g/dL (12.0-15.0); Lymphocytes # (A) 1.37 X 10*3/uL (0.90-5.00); MCH 25.8 pg (27.0-32.0); MCHC 31.2 g/dL (32.0-37.0); MCV 82.8 FL (80.0-97.0); Mean Platelet Volume 9.8 FL (9.5-12.2); Monocytes # (A) 0.49 X 10*3/uL (0.20-1.00); Monocytes % (A) 3.2 %; NRBC Per 100 WBC 0 X 10*3/uL (0.00-0.01); Neutrophils % (A) 87.3 %; Platelet Count 335 X 10*3/uL (140-440); RBC 4.07 X 10*6/uL (4.10-5.20); RDW 14.4 % (11.5-14.5); WBC 15.15 X 10*3/uL (4.50-10.00)
--- NOTE | 2023-11-22 13:07 | P.CONS ---
History of Present Illness - Reason for Consult Consult date: 11/22/23 Medical management - History of Present Illness History of present illness; patient is 68-year-old lady with past medical significant for hypertension, osteoarthritis who presented to the hospital for elective right total knee arthroplasty. Patient was being seen outpatient by orthopedics for right knee pain, patient had tried all conservative measures like physical Therapy and pain control but pain persisted. Patient was scheduled for right total knee arthroplasty on 11/21. Postoperatively internal medicine team was consulted for medical management REVIEW OF SYSTEMS: CONSTITUTIONAL: No fever, no malaise, no fatigue. HEENT: No recent visual problems or hearing problems. Denied any sore throat. CARDIOVASCULAR: No chest pain, orthopnea, PND, no palpitations, no syncope. PULMONARY: No shortness of breath, no cough, no hemoptysis. GASTROINTESTINAL: No diarrhea, no nausea, no vomiting, no abdominal pain. NEUROLOGICAL: No headaches, no weakness, no numbness. HEMATOLOGICAL: Denies any bleeding or petechiae. GENITOURINARY: Denies any burning micturition, frequency, or urgency. MUSCULOSKELETAL/RHEUMATOLOGICAL: Right knee pain ENDOCRINE: Denies any polyuria or polydipsia. The rest of the 14-point review of systems is negative. PHYSICAL EXAMINATION: GENERAL: The patient is alert and oriented x3, not in any acute distress. Well developed, well nourished. HEENT: Pupils are round and equally reacting to light. EOMI. No scleral icterus. No conjunctival pallor. Normocephalic, atraumatic. No pharyngeal erythema. No thyromegaly. CARDIOVASCULAR: S1 and S2 present. No murmurs, rubs, or gallops. PULMONARY: Chest is clear to auscultation, no wheezing or crackles. ABDOMEN: Soft, nontender, nondistended, normoactive bowel sounds. No palpable organomegaly. MUSCULOSKELETAL: Right knee surgical incision seen EXTREMITIES: No cyanosis, clubbing, or pedal edema. NEUROLOGICAL: Gross neurological examination did not reveal any focal deficits. SKIN: No rashes. Assessment and plan Right knee osteoarthritis status post right total knee arthroplasty Hypertension Asthma Monitor vital signs Monitor CBC Monitor CMP Continue pain management per orthopedics Continue DVT prophylaxis per orthopedics Resume home meds, currently normotensive, hold blood pressure medications for now. Patient directed to check her blood pressure at home and resume blood pressure medication once systolic is more than 130 PT and OT consulted Labs and medication were reviewed.. Continue same treatment. Continue with symptomatic treatment. Resume home medication. Monitor labs and vitals. DVT and GI prophylaxis. Further recommendations as per clinical course of the patient Dictation was produced using [employer] dictation software. please excuse any grammatical, word or spelling errors. Past Medical History Past Medical History: Asthma, GERD/Reflux, Hypertension, Osteoarthritis (OA) Additional Past Medical History / Comment(s): heart murmur ("functional"), allergy induced asthma History of Any Multi-Drug Resistant Organisms: None Reported Past Surgical History: Cholecystectomy, Hysterectomy, Joint Replacement Additional Past Surgical History / Comment(s): rt total hip replacement, throat surgery, left knee replaced Past Anesthesia/Blood Transfusion Reactions: Previous Problems w/ Anesthesia, Motion Sickness, Postoperative Nausea & Vomiting (PONV) Additional Past Anesthesia/Blood Transfusion Reaction / Comm: "go under very deeply" Past Psychological History: No Psychological Hx Reported Smoking Status: Never smoker Past Alcohol Use History: Occasional Past Drug Use History: None Reported - Past Family History Mother Family Medical History: No Reported History Medications and Allergies Home Medications Medication Instructions Recorded Confirmed Type Losartan Potassium [Cozaar] 50 mg PO DAILY 02/03/19 11/20/23 History Celecoxib [CeleBREX] 200 mg PO DAILY 09/03/23 11/20/23 History Albuterol Inhaler [Ventolin Hfa 1 - 2 puff INHALATION Q6H PRN 11/20/23 11/20/23 History Inhaler] hydroCHLOROthiazide [Hydrodiuril] 50 mg PO DAILY 11/20/23 11/20/23 History Aspirin [Adult Low Dose Aspirin EC] 81 mg PO BID 30 Days #60 tab 11/21/23 Rx HYDROcodone/APAP 7.5-325MG [[place] 1 - 2 tab PO Q6H PRN #32 tab 11/21/23 Rx 7.5-325] Omeprazole [PriLOSEC] 20 mg PO DAILY #30 cap 11/21/23 Rx Sennosides [Senokot] 2 tab PO DAILY PRN #60 tablet 11/21/23 Rx Allergies Allergy/AdvReac Type Severity Reaction Status Date / Time FRANCINE Inhibitors Allergy Cough Verified 11/21/23 14:08 Physical Exam Vitals: Vital Signs Temp Pulse Pulse Pulse Resp BP Pulse Ox 11/22/23 08:00 97.6 F 57 L 19 106/61 94 L 11/22/23 02:00 98.3 F 64 18 108/69 92 L 11/21/23 22:31 97.5 F L 72 18 131/76 96 11/21/23 20:15 70 16 152/77 96 11/21/23 20:00 69 16 153/79 96 11/21/23 19:45 97 F L 80 16 145/77 92 L 11/21/23 16:46 74 16 143/81 98 11/21/23 14:12 96.9 F L 68 16 177/87 100 Intake and Output 11/21/23 11/22/23 11/22/23 22:59 06:59 14:59 Intake Total 1050 1700 200 Output Total 150 160 Balance 900 1540 200 Intake: IV 1050 Intake, IV Titration 700 Amount Sodium Chloride 0.9% 1, 700 000 ml @ 70 mls/hr IV . [id number] [facility] Rx#:[id number] Oral 1000 200 Output: Drainage 160 Right Knee 160 Estimated Blood Loss 150 Other: # Voids 2 Weight 97.3 kg Results CBC & Chem 7: 11/22/23 05:41
== END 2023-11-22 11:48 | disposition home health service (06) ==
LOC: OR 13:35 → 4SSUR 19:40 → OR 11-22 11:48
PROVIDERS: ATTEND Orthopaedic Surgery
DX: M17.11 Unilateral primary osteoarthritis, right knee (principal); I10 Essential (primary) hypertension; J45.909 Unspecified asthma, uncomplicated; K21.9 Gastro-esophageal reflux disease without esophagitis; Z79.1 Long term (current) use of non-steroidal anti-inflammatories (NSAID); Z79.82 Long term (current) use of aspirin; Z79.899 Other long term (current) drug therapy
CPT/HCPCS: 0055T; 27447; 64447; 64999; 85025

== ENCOUNTER → 2024-07-10 | Outpatient (CLI) | payer MEDICARE ==
--- NOTE | 2024-07-10 14:59 | BD ---
EXAMINATION TYPE: Axial Bone Density DATE OF EXAM: 07/10/2024 CLINICAL HISTORY: 69 years old Female. ICD-10 CODE: Z78.0 AYSMPTOMATIC MENOPAUSAL Height: 66" Weight: 221lbs FRAX RISK QUESTIONS: Alcohol (3 or more units per day): No Family History (Parent hip fracture): No Glucocorticoids (More than 3mos): No (Ex: prednisone, prednisolone, methylprednisolone, dexamethasone, and hydrocortisone). History of Fracture in Adulthood: No Secondary Osteoporosis: 1. Type 1 Diabetes: No 2. Hyperthyroidism: No 3. Menopause before 45: No 4. Malnutrition: No 5. Chronic liver disease: No Rheumatoid Arthritis: No Current Tobacco Use: No RISK FACTORS HISTORY OF: Hip Fracture (Right/Left): No Spine Fracture: No History of Wrist Fracture: No Surgery to Spine/Hip(right/left)/Wrist (right/left): Right hip replacement When: Approx2010 MEDICATIONS: Thyroid Medications: No Osteoporosis Medications: No EXAM MEASUREMENTS: Bone mineral densitometry was performed using the [facility]. Bone mineral density as measured about the Lumbar spine is: ----- L1-L4(G/cm2): 1.463 T Score Values are as follows: ----- L1: 2.2 ----- L2: 4.4 ----- L3: 1.1 ----- L4: 1.6 ----- L1-L4: 2.4 Z Score Values are as follows: ----- L1: 2.7 ----- L2: 4.9 ----- L3: 1.6 ----- L4: 2.0 ----- L1-L4: 2.8 Baseline @MPH Bone mineral density about the L hip (g/cm2): 0.992 T Score values are as follows: -----L Neck: -0.2 -----L Total: -0.1 Z Score values are as follows: -----L Neck: 0.7 -----L Total: 0.4 Baseline @MPH FRAX%s: The graph provided illustrates a 6.7% chance for a major osteoporotic fx and a 0.3% chance fo r the hips probability for fx in 10 years time. IMPRESSION: Normal (Values between +1 and -1 indicate normal bone mass). Consider repeating this study in 5 year s or sooner if there is some new clinical indication. NOTE: T-SCORE=SD OF THE YOUNG ADULT MEAN.
--- NOTE | 2024-07-11 08:42 | MM ---
Reason for Exam: Screening (asymptomatic). Last screening mammogram was performed 12 month(s) ago. Patient History: Menarche at age 12. First Full-Term at age 31. Late child-bearing (after 31). Hysterectomy at age 35. Postmenopausal. Patient has history of breast feeding. Risk Values: Bárbara 5 year model risk: 2.6%. NCI Lifetime model risk: 8.3%. Prior Study Comparison: 03/31/2011 Screening Mammogram, [facility]. 08/22/2016 Screening Mammogram, [facility]. 01/01/2019 Bilateral Screening Mammogram, [facility]. 07/05/2023 Bilateral MG 3D screening mammo w/cad, [facility]. Tissue Density: The breasts are heterogeneously dense, which may obscure small masses. Findings: Analyzed By CAD. There is no suspicious group of microcalcifications or new suspicious mass in either breast. Overall Assessment: Negative, BI-RAD 1 Management: Screening Mammogram of both breasts in 1 year. . Patient should continue monthly self-breast exams. A clinical breast exam by your physician is recommended on an annual basis. This exam should not preclude additional follow-up of suspicious palpable abnormalities. Note on Bárbara scores and lifetime risk: 1. A Bárbara score greater than 3% is considered moderate risk. If this is the case, consider specialist referral to assess eligibility for a risk reducing agent. 2. If overall lifetime risk for the development of breast cancer is 20% or higher, the patient may qualify for future screening with alternating mammogram and breast MRI. Electronically signed and approved by: Tariq Engel M.D. [facility]
== END | disposition home or self-care (01) ==
LOC: RADMAMWWP 12:51
PROVIDERS: ATTEND Family Medicine
DX: Z12.31 Encounter for screening mammogram for malignant neoplasm of breast (principal); Z78.0 Asymptomatic menopausal state; R92.333 Mammographic heterogeneous density, bilateral breasts; M85.88 Other specified disorders of bone density and structure, other site
CPT/HCPCS: 77063; 77067; 77080